=== PATIENT | male | born 1955 | race Caucasian/White ===

== ENCOUNTER 2019-04-10 07:02 | Outpatient (CLI) | payer OTHER ==
--- NOTE | 2019-04-10 09:19 | ULT ---
HEPATIC ULTRASOUND: Date: 04/10/19 HISTORY: Hepatitis C. FINDINGS: Real-time imaging of the right upper quadrant was performed. This shows a normal appearing gallbladde r. The common duct is normal in caliber at 4 mm. The liver is somewhat heterogeneous in appearance. I t shows several ill-defined masses in the left lobe, one measuring 2.3 cm maximum size and the other one is 2.1 cm. There is what may be a third nodule in the 1.0 cm range. Liver margin has a slightly n odular contour suggesting some cirrhotic change. The spleen is 10.1 cm in length. DOPPLER EVALUATION WITH SPECTRAL ANALYSIS: Normal flow pattern is shown within the liver. The visualized portions of the pancreas are unremarkable. Right kidney is normal in size and not obst ructed. IMPRESSION: Several somewhat ill-defined hypoechoic liver masses. These could be on the basis of regenerative nod ules versus neoplasm. Further evaluation with CT or MRI would be suggested. These findings were telephoned to Dr. Valencia Guevara's nurse. CODE CR. POS: [facility]
== END 2019-04-10 07:03 | disposition home or self-care (01) ==
LOC: BICULT 07:02
PROVIDERS: ATTEND Internal Medicine Gastroenterology
DX: B18.2 Chronic viral hepatitis C (principal); R16.0 Hepatomegaly, not elsewhere classified
CPT/HCPCS: 76705

== ENCOUNTER 2020-09-08 11:08 | Outpatient (CLI) | payer BC, MEDICARE | END 2020-09-08 11:09 | disposition home or self-care (01) | LOC: BICRAD 11:08 | PROVIDERS: ATTEND Physician Assistant | DX: M25.571 Pain in right ankle and joints of right foot (principal); M25.572 Pain in left ankle and joints of left foot; S89.101 Unspecified physeal fracture of lower end of right tibia ==